=== PATIENT | male | born 1960 | race Caucasian/White ===

== ENCOUNTER 2021-08-01 16:47 | Observation (INO) | payer MEDICAID ==
[2021-08-01] MEDS ORDERED: Ondansetron 4 MG/2 ML SDV IVPUSH ONE (17:49)
[2021-08-01] MEDS ORDERED: Pantoprazole 40 MG Vial IVPUSH ONE (17:49)
--- NOTE | 2021-08-01 17:51 | EDM.PDOC ---
ED HPI GENERAL MEDICAL PROBLEM - General Chief Complaint: Gastrointestinal Problem Time Seen by Provider: 08/01/21 17:30 Source of Information: Reports: Patient, Old Records - History of Present Illness INITIAL COMMENTS - FREE TEXT/NARRATIVE: Aimee is a 61 y/o male who was seen this afternoon at the [facility] for bloody stools. He did have labs done and results were sent here to the ER; patient was then sent here to be further evaluated. Pt reports that last evening he had some abdominal pain and felt ill then started to have the diarrhea. Then shortly after that the diarrhea turned to bright bloody stools and continued most of the night about every 30-60 minutes. He is a but light- headed and nauseated and feels weak. He is usually seen by Dr Rome in [place], but could not get in and came here today. He reports having a colonoscopy in 2019 at [facility] and he had a polyp removed. Does have a positive family hx of colon CA. Abdomen Pain Score (Numeric/FACES): 7 - Related Data Allergies Allergy/AdvReac Type Severity Reaction Status Date / Time barium sulfate Allergy Other Verified 08/01/21 17:09 lactose Allergy Abdominal Verified 08/01/21 17:09 Cramps Home Meds: Home Meds FLUoxetine HCl [Prozac] 60 mg PO DAILY 08/01/21 [History] Folic Acid 0.8 mg PO DAILY 08/01/21 [History] Ketoconazole [Ketoconazole 2%] 1 applic TOP TID 08/01/21 [History] Methylphenidate HCl [Methylphenidate ER] 20 mg PO DAILY 08/01/21 [History] Metoprolol Succinate [Toprol XL 100mg] 100 mg PO DAILY 08/01/21 [History] Omeprazole Magnesium [Prilosec Otc] 20 mg PO DAILY 08/01/21 [History] Tamsulosin HCl [Flomax] 0.4 mg PO DAILY 08/01/21 [History] atorvaSTATin Calcium [Lipitor] 20 mg PO BEDTIME 08/01/21 [History] buPROPion HCL [Bupropion Xl] 300 mg PO DAILY 08/01/21 [History] polyethylene glycoL 3350 [MiraLAX] 17 gm PO DAILY 08/01/21 [History] Past Medical History Cardiovascular History: Reports: Hypertension Psychiatric History: Reports: Depression Social & Family History - Tobacco Use Tobacco Use Status *Q: Unknown Ever Used Tobacco Review of Systems - Review of Systems Review Of Systems: See Below Constitutional: Reports: Weakness Eyes: Reports: No Symptoms Ears: Reports: Dizziness Nose: Reports: No Symptoms Mouth/Throat: Reports: No Symptoms Respiratory: Reports: No Symptoms Cardiovascular: Reports: No Symptoms GI/Abdominal: Reports: Abdominal Pain, Bloody Stool, Diarrhea, Nausea Genitourinary: Reports: No Symptoms Musculoskeletal: Reports: No Symptoms Skin: Reports: No Symptoms Neurological: Reports: Dizziness Psychiatric: Reports: No Symptoms ED EXAM, GENERAL - Physical Exam Exam: See Below General Appearance: Alert, WD/WN, No Apparent Distress (Adult male, NAD. Neatly dressed and sitting quietly in ER chair.) Ears: Hearing Grossly Normal Nose: Normal Inspection, Normal Mucosa Throat/Mouth: Normal Inspection, Normal Oropharynx, Normal Voice Head: Atraumatic, Normocephalic Respiratory/Chest: No Respiratory Distress, Lungs Clear Cardiovascular: Normal Peripheral Pulses, Regular Rate, Rhythm, No Murmur GI/Abdominal: Soft, No Distention, Tender (LUQ/LLQ), Abnormal Bowel Sounds ( Hyperactive x 4 quads) (Male) Exam: Deferred Rectal (Males) Exam: Deferred Back Exam: No: CVA Tenderness (L), CVA Tenderness (R) Extremities: Normal Inspection, Normal Range of Motion, Normal Capillary Refill Neurological: Alert, Oriented, CN II-XII Intact, Normal Cognition, No Motor/Sensory Deficits Psychiatric: Normal Affect Skin Exam: Warm, Dry, Intact, Pallor (Slightly pale) Course - Vital Signs Text/Narrative:: 1729 The patient was seen by the [facility]. Labs from [facility] were reviewed. CBC wnl, CMP AST/ALT mildly elevated otherwise wnl. Patient had small bright bloody stool in the ER. VSS. IV fluids started. Protonix 80mg IVP and Zofran 4mg IVP ordered. 1744 [facility] contacted, no beds available. Will obtain CT Abd/pelvis to exclude other differentials and if negative and pt remains stable will plan Observation admission and attempt to get him to GI tomorrow. 1944 CT results reviewed, note colitis in the transverse colon. Pt had been up and had several more bright bloody stools with small clots. Will admit Observation and place him on fluids, monitor his bloody stools overnight and then consult GI in the AM and possible transfer to [place] then if he stays stable tonight. Azithromycin to cover him for the colitis. Last Recorded V/S: Last Vital Signs Temp 35.9 C L 08/01/21 16:55 Pulse 68 08/01/21 16:55 Resp 18 08/01/21 16:55 BP 108/77 08/01/21 16:55 Pulse Ox 96 08/01/21 16:55 - Orders/Labs/Meds Orders: Active Orders 24 hr Category Date Time Status Azithromycin [Zithromax] 500 mg Med 08/01/21 19:51 Ordered Sodium Chloride 0.9% [Normal Saline AdvBag] 250 ml IV STAT Sodium Chloride 0.9% [Normal Saline] 1,000 ml Med 08/01/21 19:03 Active IV ONETIME Sodium Chloride 0.9% [Saline Flush] Med 08/01/21 17:47 Active 10 ml FLUSH ASDIRECTED PRN Saline Lock Insert [OM.PC] Stat Oth 08/01/21 17:47 Ordered Medication Orders Sodium Chloride (Normal Saline) 1,000 mls @ 999 mls/hr IV ONETIME ONE Stop: 08/01/21 20:03 Last Admin: 08/01/21 19:20 Dose: 999 mls/hr Documented by: SEVERIANO Azithromycin 500 mg/ Sodium (Chloride) 250 mls @ 250 mls/hr IV STAT ONE Stop: 08/01/21 20:50 Sodium Chloride (Sodium Chloride 0.9% 10 Ml Syringe) 10 ml FLUSH ASDIRECTED PRN PRN Reason: Keep Vein Open Labs: Laboratory Tests 08/01/21 Range/Units 18:46 SARS CoV-2 RNA Rapid CHAD Negative (NEGATIVE) Meds: Medications Generic Name Dose Route Start Last Admin Trade Name Freq PRN Reason Stop Dose Admin Sodium Chloride 1,000 mls @ 999 mls/hr 08/01/21 19:03 08/01/21 19:20 Normal Saline IV 08/01/21 20:03 999 mls/hr ONETIME ONE Administration Azithromycin 500 mg/ Sodium 250 mls @ 250 mls/hr 08/01/21 19:51 Chloride IV 08/01/21 20:50 STAT ONE Sodium Chloride 10 ml 08/01/21 17:47 Sodium Chloride 0.9% 10 Ml Syringe FLUSH ASDIRECTED PRN Keep Vein Open Discontinued Medications Generic Name Dose Route Start Last Admin Trade Name Yumiko PRN Reason Stop Dose Admin Iopamidol 100 ml 08/01/21 18:50 Iopamidol 612 Mg/Ml 100 Ml Bottle IVPUSH 08/01/21 18:51 ONETIME ONE Ondansetron HCl 4 mg 08/01/21 17:49 08/01/21 18:08 Ondansetron 4 Mg/2 Ml Sdv IVPUSH 08/01/21 17:50 4 mg ONETIME ONE Administration Pantoprazole Sodium 80 mg 08/01/21 17:49 08/01/21 18:13 Pantoprazole 40 Mg Vial IVPUSH 08/01/21 17:50 80 mg ONETIME ONE Administration - Radiology Interpretation Free Text/Narrative:: CT Abd/Pelvis W= colitis in the distal trasnverse colon, possible scattered enteritis (See final report) Departure - Departure Time of Disposition: 19:56 Disposition: Refer to Observation Condition: Good Clinical Impression: Bloody stools - Discharge Information Referrals: Bj Alaniz MD [Primary Care Provider] - Forms: ED Department Discharge Additional Instructions: -Admit to Observation tonight and attempt to consult [facility] tomorrow and transfer for GI consult. Sepsis Event Note (ED) - Focused Exam Vital Signs: Vital Signs Temp Pulse Resp BP Pulse Ox 08/01/21 16:55 35.9 C L 68 18 108/77 96 - Problem List & Annotations (1) Bloody stools SNOMED Code(s): 995714122 Code(s): K92.1 - MELENA Status: Acute Current Visit: Yes Annotation/Comment:: CT noted colitis and possible enteritis. Will start Azithromycin tonight and admit him to Observation with IV fluids. WIll make him NPO with ice chips only. Continue antiemtics and monitor his vitals. Call [facility] again in the AM for a bed. - Problem List Review Problem List Initiated/Reviewed/Updated: Yes - My Orders Last 24 Hours: My Active Orders 08/01/21 17:47 Sodium Chloride 0.9% [Saline Flush] 10 ml FLUSH ASDIRECTED PRN Saline Lock Insert [OM.PC] Stat 08/01/21 19:03 Sodium Chloride 0.9% [Normal Saline] 1,000 ml IV ONETIME 08/01/21 19:51 Azithromycin [Zithromax] 500 mg Sodium Chloride 0.9% [Normal Saline AdvBag] 250 ml IV STAT - Assessment/Plan Admission H&P: Please use this note as an admission H&P Last 24 Hours: My Active Orders 08/01/21 17:47 Sodium Chloride 0.9% [Saline Flush] 10 ml FLUSH ASDIRECTED PRN Saline Lock Insert [OM.PC] Stat 08/01/21 19:03 Sodium Chloride 0.9% [Normal Saline] 1,000 ml IV ONETIME 08/01/21 19:51 Azithromycin [Zithromax] 500 mg Sodium Chloride 0.9% [Normal Saline AdvBag] 250 ml IV STAT Plan: See above
[2021-08-01] MEDS ORDERED: Iopamidol 612 MG/ML 100 ML Bottle IVPUSH ONE (18:50)
[2021-08-01] MEDS ORDERED: Sodium Chloride 0.9% 1,000 ML IV ONE (19:03)
--- NOTE | 2021-08-01 19:28 | CT ---
[id number] CT/CT Abdomen Pelvis W IV EXAM: CT Abdomen Pelvis W IV INDICATION: ABDOMINAL PAIN, BLOODY STOOLS. COMPARISON: None. DISCUSSION: There is moderate mural thickening involving the distal transverse colon compatible with colitis. Borderline mural thickening involving loops of the distal small bowel which could relate to enteritis. No free air, pneumatosis, bowel dilation, free air, or abscess. Bladder wall thickening is nonspecific, but may relate to chronic outlet obstruction. Mild to moderate prostate enlargement. Evidence of prior left inguinal hernia repair. The liver, gallbladder, spleen, pancreas, adrenal glands, kidneys, and appendix are normal in appearance. No adenopathy. Slight retrolisthesis of L4-L5. Slight spondylolisthesis L5-S1 with bilateral pars defects. IMPRESSION: 1. Colitis of the distal transverse segment. 2. Possible mild scattered enteritis. Tom Mistry MD 08/01/[id number] Thank you for allowing us to participate in the care of your patient.
[2021-08-01] MEDS ORDERED: Azithromycin 500 MG in Sodium Chloride 0.9% 250 ML IV ONE (19:51)
[2021-08-01] MEDS ORDERED: Temazepam 15 MG Cap PO PRN (20:01)
[2021-08-01] MEDS ORDERED: Acetaminophen 325 MG Tab PO PRN (20:01)
[2021-08-01] MEDS ORDERED: Ondansetron 4 MG/2 ML SDV IV PRN (20:01)
[2021-08-01] MEDS ORDERED: Pantoprazole 40 MG in Sodium Chloride 0.9% 100 ML IV SCH (20:15)
[2021-08-01] MEDS ORDERED: Morphine 2 MG/ML SYRINGE IVPUSH PRN (21:18)
[2021-08-01] MEDS: Dextrose 5%-0.9% NaCl 1,000 ML IV SCH (21:39)
[2021-08-02] MEDS: Morphine 2 MG/ML SYRINGE IVPUSH PRN ×2 (02:13→08:23)
[2021-08-02] MEDS: Dextrose 5%-0.9% NaCl 1,000 ML IV SCH ×2 (06:00→13:01)
[2021-08-02 07:11] LABS: ANION GAP 11.7 mmol/L (5-15); CHLORIDE,CL 108 mmol/L (98-107); SODIUM,NA 145 mmol/L (136-145)
[2021-08-02] MEDS ORDERED: buPROPion 150 MG Tab.ER PO SCH (08:00)
[2021-08-02] MEDS ORDERED: Tamsulosin 0.4 MG Cap.ER PO SCH (08:00)
[2021-08-02] MEDS ORDERED: Non-Formulary Medication 1 Each (Metoprolol Succinate [Toprol Xl 100mg] 100 MG Tab.Er) PO SCH (08:00)
[2021-08-02] MEDS ORDERED: Non-Formulary Medication 1 Each (Bupropion Hcl [Bupropion Xl] 300 MG Tab.Er.24h) PO SCH (08:00)
[2021-08-02] MEDS ORDERED: Metoprolol Succinate 50 MG Tab.ER PO SCH (08:00)
[2021-08-02] MEDS ORDERED: Pantoprazole 40 MG Vial IVPUSH SCH (08:00)
[2021-08-02] MEDS ORDERED: Azithromycin 500 MG in Sodium Chloride 0.9% 250 ML IV SCH ×2 (08:00→20:00)
[2021-08-02] MEDS ORDERED: FLUoxetine 20 MG Cap PO SCH (08:00)
[2021-08-02] MEDS ORDERED: METHYLPHENIDATE HCL 20 MG PO SCH (08:00)
[2021-08-02] MEDS: Sodium Chloride 0.9% 10 ML Syringe FLUSH PRN ×2 (08:24→09:24)
--- NOTE | 2021-08-02 09:05 | PCM.PN ---
- General Info Date of Service: 08/02/21 Admission Dx/Problem (Free Text): Bloody Stools Possible Colitis Subjective Update: Doing well overnight. Has still been up with bloody stools, but frequency seems a less overnight. Patient is still having abdominal discomfort and nausea. Feeling weak. - Review of Systems General: Reports: Weakness HEENT: Reports: No Symptoms Pulmonary: Reports: No Symptoms Cardiovascular: Reports: No Symptoms Gastrointestinal: Reports: Abdominal Pain, Nausea, Other (Bloody Stools) Genitourinary: Reports: No Symptoms Musculoskeletal: Reports: No Symptoms, Back Pain Neurological: Reports: Dizziness Psychiatric: Reports: No Symptoms - Patient Data Vitals - Most Recent: Last Vital Signs Temp 35.9 C L 08/02/21 06:05 Pulse 68 08/02/21 08:21 Resp 18 08/02/21 06:05 BP 141/78 H 08/02/21 08:21 Pulse Ox 96 08/02/21 06:05 Weight - Most Recent: 80.739 kg I&O - Last 24 Hours: Intake & Output 08/01/21 08/02/21 08/02/21 22:59 06:59 14:59 Intake Total 1250 Output Total 250 850 Balance -250 400 Lab Results Last 24 Hours: Laboratory Results - last 24 hr 08/01/21 08/02/21 08/02/21 Range/Units 18:46 06:22 06:22 WBC 6.0 (4.0-10.0) x10^3/uL RBC 4.61 (4.5-6.0) x10^6/uL Hgb 13.8 L (14.0-18.0) g/dL Hct 40.6 (40.0-52.0) % MCV 88.1 (78.0-93.0) fL MCH 29.9 (26.0-32.0) pg MCHC 34.0 (32.0-36.0) g/dL RDW Coeff of Ana 13.2 (10.0-15.0) % Plt Count 133 (130-400) x10^3/uL Immature Gran % (Auto) 0.20 (0.00-0.43) % Neut % (Auto) 70.9 (50.0-80.0) % Lymph % (Auto) 19.6 L (25.0-50.0) % Sawyer % (Auto) 8.8 (2.0-11.0) % Eos % (Auto) 0.3 (0.0-4.0) % Baso % (Auto) 0.2 (0.2-1.2) % Neut # (Auto) 4.3 (1.8-7.7) x10^3/uL Lymph # (Auto) 1.2 (1.0-4.8) x10^3/uL Sawyer # (Auto) 0.5 (0.0-0.8) x10^3/uL Eos # (Auto) 0.0 (0.0-0.5) x10^3/uL Baso # (Auto) 0.0 (0.0-0.2) x10^3/uL Immature Gran # (Auto) 0.01 (0.00-0.07) x10^3/uL Sodium 145 (136-145) mmol/L Potassium 3.7 (3.5-5.1) mmol/L Chloride 108 H (98-107) mmol/L Carbon Dioxide 29 (21-32) mmol/L Anion Gap 11.7 (5-15) mmol/L BUN 8 (7-18) mg/dL Creatinine 1.0 (0.70-1.30) mg/dL Est Cr Clr Drug Dosing 82.13 mL/min Estimated GFR (MDRD) > 60 Glucose 107 H (70-99) mg/dL Calcium 8.1 L (8.5-10.1) mg/dL C-Reactive Protein 1.9 H (<=0.9) mg/dL SARS CoV-2 RNA Rapid CHAD Negative (NEGATIVE) Med Orders - Current: Current Medications Acetaminophen (Acetaminophen 325 Mg Tab) 650 mg PO Q4H PRN PRN Reason: Pain (Mild 1-3)/fever Bupropion HCl (Bupropion 150 Mg Tab.Er) 300 mg PO DAILY [facility] Last Admin: 08/02/21 08:23 Dose: 300 mg Documented by: Ceftriaxone Sodium (Ceftriaxone 1 Gm Vial) 1 gm IVPUSH DAILY GUY Fluoxetine HCl (Fluoxetine 20 Mg Cap) 60 mg PO DAILY [facility] Last Admin: 08/02/21 08:22 Dose: 60 mg Documented by: Dextrose/Sodium Chloride (Dextrose 5%-Normal Saline) 1,000 mls @ 125 mls/hr IV ASDIRECTED [facility] Last Admin: 08/02/21 06:00 Dose: 125 mls/hr Documented by: Metronidazole 500 mg/ Premix 100 mls @ 100 mls/hr IV Q8H [facility] Metoprolol Succinate (Metoprolol Succinate 50 Mg Tab.Er) 100 mg PO DAILY [facility] Last Admin: 08/02/21 08:21 Dose: 100 mg Documented by: Morphine Sulfate (Morphine 2 Mg/Ml Syringe) 2 mg IVPUSH Q2H PRN PRN Reason: Pain Last Admin: 08/02/21 08:23 Dose: 2 mg Documented by: Morphine Sulfate (Morphine 2 Mg/Ml Syringe) 1 mg IVPUSH Q2H PRN PRN Reason: Pain Non-Formulary Medication (Methylphenidate Hcl [Methylphenidate Er]) 20 mg PO DAILY [facility] Last Admin: 08/02/21 08:29 Dose: Not Given Documented by: Ondansetron HCl (Ondansetron 4 Mg/2 Ml Sdv) 4 mg IV Q4H PRN PRN Reason: Nausea/Vomiting Last Admin: 08/02/21 08:21 Dose: 4 mg Documented by: Pantoprazole Sodium (Pantoprazole 40 Mg Vial) 40 mg IVPUSH Q12H [facility] Last Admin: 08/02/21 08:21 Dose: 40 mg Documented by: Sodium Chloride (Sodium Chloride 0.9% 10 Ml Syringe) 10 ml FLUSH ASDIRECTED PRN PRN Reason: Keep Vein Open Last Admin: 08/02/21 08:24 Dose: 10 ml Documented by: Tamsulosin HCl (Tamsulosin 0.4 Mg Cap.Er) 0.4 mg PO DAILY [facility] Last Admin: 08/02/21 08:22 Dose: 0.4 mg Documented by: Temazepam (Temazepam 15 Mg Cap) 15 mg PO BEDTIME PRN PRN Reason: Sleep Discontinued Medications Sodium Chloride (Normal Saline) 1,000 mls @ 999 mls/hr IV ONETIME ONE Stop: 08/01/21 20:03 Last Admin: 08/01/21 19:20 Dose: 999 mls/hr Documented by: Azithromycin 500 mg/ Sodium (Chloride) 250 mls @ 250 mls/hr IV STAT ONE Stop: 08/01/21 20:50 Last Admin: 08/01/21 20:05 Dose: 250 mls/hr Documented by: Azithromycin 500 mg/ Sodium (Chloride) 250 mls @ 250 mls/hr IV DAILY GUY Pantoprazole Sodium 40 mg/ (Sodium Chloride) 100 mls @ 20 mls/hr IV Q12H GUY Last Admin: 08/02/21 02:14 Dose: Not Given Documented by: Azithromycin 500 mg/ Sodium (Chloride) 250 mls @ 250 mls/hr IV Q24H GUY Iopamidol (Iopamidol 612 Mg/Ml 100 Ml Bottle) 100 ml IVPUSH ONETIME ONE Stop: 08/01/21 18:51 Last Admin: 08/01/21 18:13 Dose: 100 ml Documented by: Non-Formulary Medication (Bupropion Hcl [Bupropion Xl]) 300 mg PO DAILY GUY Non-Formulary Medication (Metoprolol Succinate [Toprol Xl 100mg]) 100 mg PO DAILY GUY Ondansetron HCl (Ondansetron 4 Mg/2 Ml Sdv) 4 mg IVPUSH ONETIME ONE Stop: 08/01/21 17:50 Last Admin: 08/01/21 18:08 Dose: 4 mg Documented by: Pantoprazole Sodium (Pantoprazole 40 Mg Vial) 80 mg IVPUSH ONETIME ONE Stop: 08/01/21 17:50 Last Admin: 08/01/21 18:13 Dose: 80 mg Documented by: - Exam General: Alert, Oriented, No Acute Distress (Adult male, resting quietly.) HEENT: Mucous Membr. Moist/[place] Neck: Supple Lungs: Clear to Auscultation, Normal Respiratory Effort Cardiovascular: Regular Rate, Regular Rhythm GI/Abdominal Exam: No Distention, Abnormal Bowel Sounds (decreased) (Male) Exam: Deferred Extremities: Normal Inspection, Normal Range of Motion, No Pedal Edema, Normal Capillary Refill Skin: Warm, Dry, Intact Psy/Mental Status: Alert, Normal Affect, Normal Mood - Patient Data Lab Results Last 24 hrs: Laboratory Results - last 24 hr 08/01/21 08/02/21 08/02/21 Range/Units 18:46 06:22 06:22 WBC 6.0 (4.0-10.0) x10^3/uL RBC 4.61 (4.5-6.0) x10^6/uL Hgb 13.8 L (14.0-18.0) g/dL Hct 40.6 (40.0-52.0) % MCV 88.1 (78.0-93.0) fL MCH 29.9 (26.0-32.0) pg MCHC 34.0 (32.0-36.0) g/dL RDW Coeff of Ana 13.2 (10.0-15.0) % Plt Count 133 (130-400) x10^3/uL Immature Gran % (Auto) 0.20 (0.00-0.43) % Neut % (Auto) 70.9 (50.0-80.0) % Lymph % (Auto) 19.6 L (25.0-50.0) % Sawyer % (Auto) 8.8 (2.0-11.0) % Eos % (Auto) 0.3 (0.0-4.0) % Baso % (Auto) 0.2 (0.2-1.2) % Neut # (Auto) 4.3 (1.8-7.7) x10^3/uL Lymph # (Auto) 1.2 (1.0-4.8) x10^3/uL Sawyer # (Auto) 0.5 (0.0-0.8) x10^3/uL Eos # (Auto) 0.0 (0.0-0.5) x10^3/uL Baso # (Auto) 0.0 (0.0-0.2) x10^3/uL Immature Gran # (Auto) 0.01 (0.00-0.07) x10^3/uL Sodium 145 (136-145) mmol/L Potassium 3.7 (3.5-5.1) mmol/L Chloride 108 H (98-107) mmol/L Carbon Dioxide 29 (21-32) mmol/L Anion Gap 11.7 (5-15) mmol/L BUN 8 (7-18) mg/dL Creatinine 1.0 (0.70-1.30) mg/dL Est Cr Clr Drug Dosing 82.13 mL/min Estimated GFR (MDRD) > 60 Glucose 107 H (70-99) mg/dL Calcium 8.1 L (8.5-10.1) mg/dL C-Reactive Protein 1.9 H (<=0.9) mg/dL SARS CoV-2 RNA Rapid CHAD Negative (NEGATIVE) Result Diagrams: 08/02/21 06:22 08/02/21 06:22 Sepsis Event Note - Evaluation Sepsis Screening Result: No Definite Risk - Focused Exam Vital Signs: Vital Signs Temp Pulse Pulse Resp BP BP Pulse Ox 08/02/21 08:21 68 141/78 H 08/02/21 06:05 35.9 C L 68 18 141/78 H 96 08/02/21 02:00 35.4 C L 70 19 133/72 95 08/01/21 22:02 08/01/21 21:44 36.7 C 68 22 H 120/80 97 Pulse Ox 08/02/21 08:21 08/02/21 06:05 08/02/21 02:00 08/01/21 22:02 94 L 08/01/21 21:44 - Problem List & Annotations (1) Bloody stools SNOMED Code(s): 575833923 Code(s): K92.1 - MELENA Status: Acute Current Visit: Yes Annotation/Comment:: [facility] contacted and case discussed with Dr Patel, patient accepted for transfer when bed available. D/C Azithromycin and Ceftriaxone and Flagyl ordered this AM. Continue NPO status. - Problem List Review Problem List Initiated/Reviewed/Updated: Yes - My Orders Last 24 Hours: My Active Orders 08/01/21 17:47 Sodium Chloride 0.9% [Saline Flush] 10 ml FLUSH ASDIRECTED PRN Saline Lock Insert [OM.PC] Stat 08/01/21 19:59 Patient Status [ADT] Routine May Shower [RC] 08 Up ad Elaine [RC] , VTE/DVT Education [RC] 08 Resuscitation Status Routine 08/01/21 20:00 Intake and Output [RC] 06,18 08/01/21 20:01 Cardiac Monitoring [RC] 02,06,10,14,18,22 Notify Provider Vital Signs [RC] .PRN Acetaminophen [TylenoL] 650 mg PO Q4H PRN Ondansetron [Zofran] 4 mg IV Q4H PRN Temazepam [Restoril] 15 mg PO BEDTIME PRN 08/01/21 20:02 Ambulate [RC] 08,20 Oxygen Therapy [RC] PRN Vital Signs [RC] 02,06,10,14,18,22 08/01/21 21:17 Morphine 2 mg IVPUSH Q2H PRN 08/01/21 21:18 Morphine 1 mg IVPUSH Q2H PRN 08/01/21 21:30 Dextrose 5%-0.9% NaCl [Dextrose 5%-Normal Saline] 1,000 ml IV ASDIRECTED 08/02/21 08:00 FLUoxetine [PROzac] 60 mg PO DAILY Methylphenidate HCl [Methylphenidate ER] 20 mg PO DAILY Metoprolol Succinate [Toprol XL] 100 mg PO DAILY Pantoprazole [ProTONIX IV] 40 mg IVPUSH Q12H Tamsulosin [Flomax] 0.4 mg PO DAILY buPROPion [Wellbutrin XL] 300 mg PO DAILY 08/02/21 09:02 Dietary Supplements [RC] BIDMEALS 08/02/21 09:15 cefTRIAXone [Rocephin] 1 gm IVPUSH DAILY metroNIDAZOLE/Normal Saline [Flagyl in NS 500 MG/100 ML] 500 mg Premix Bag 1 bag IV Q8H - Plan Plan:: -Transfer to [facility] to Dr Patel when bed available. Plan transfer by ambulance.
[2021-08-02] MEDS ORDERED: cefTRIAXone 1 GM Vial IVPUSH SCH (09:15)
[2021-08-02] MEDS: metroNIDAZOLE/Normal Saline 500 MG in Premix Bag 1 BAG IV SCH ×3 (09:24→16:27)
--- NOTE | 2021-08-02 13:08 | PCM.DCSUM1 ---
Discharge Summary - Hospital Course HPI Initial Comments: Patient had presented to the ER last night with report of bloody stools that had started Sunday night following an episode of diarhea and overall not feeling well. This persisted and then he was seen in the ER on Sunday evening. He indeed was continuing to have bright bloody stools and [place] Was consulted, but no bed available. So he was started on abx and a CT was done here in [place] last night. Possible colitis or enteritis noted. He was kept NPO and admitted here for Observation until a bed was available in [place]. Bloody stools have persisted through the night. Vitals stable. Remains NPO. Still having some nausea and abdominal discomfort. Diagnosis: Stroke: No - Discharge Data Discharge Date: 08/02/21 Discharge Disposition: DC/Tfer to Acute Hospital 02 Condition: Good - Referral to Home Health Primary Care Physician: Bj Alaniz MD - Discharge Diagnosis/Problem(s) (1) Bloody stools SNOMED Code(s): 629073481 ICD Code: K92.1 - MELENA Status: Acute Current Visit: Yes Problem Details: [facility] contacted and case discussed with Dr Patel, patient accepted for transfer when bed available. D/C Azithromycin and Ceftriaxone and Flagyl ordered this AM. Continue NPO status. - Patient Instructions Diet: NPO - Discharge Plan Home Medications: Home Meds FLUoxetine HCl [Prozac] 60 mg PO DAILY 08/01/21 [History] Folic Acid 0.8 mg PO DAILY 08/01/21 [History] Ketoconazole [Ketoconazole 2%] 1 applic TOP TID 08/01/21 [History] Methylphenidate HCl [Methylphenidate ER] 20 mg PO DAILY 08/01/21 [History] Metoprolol Succinate [Toprol XL 100mg] 100 mg PO DAILY 08/01/21 [History] Omeprazole Magnesium [Prilosec Otc] 20 mg PO DAILY 08/01/21 [History] Tamsulosin HCl [Flomax] 0.4 mg PO DAILY 08/01/21 [History] atorvaSTATin Calcium [Lipitor] 20 mg PO BEDTIME 08/01/21 [History] buPROPion HCL [Bupropion Xl] 300 mg PO DAILY 08/01/21 [History] polyethylene glycoL 3350 [MiraLAX] 17 gm PO DAILY 08/01/21 [History] Oxygen Therapy Mode: Room Air Forms: Interfacility Transfer EMTALA Referrals: Bj Alaniz MD [Primary Care Provider] - - Discharge Summary/Plan Comment DC Time >30 min.: Yes Total # of Minutes for Discharge Time: 45 minutes for patient care, documentation, and arranging transfer to Special[facility] - Patient Data Vitals - Most Recent: Last Vital Signs Temp 36.4 C 08/02/21 10:00 Pulse 72 08/02/21 10:00 Resp 18 08/02/21 10:00 BP 139/68 08/02/21 10:00 Pulse Ox 96 08/02/21 10:00 Weight - Most Recent: 80.739 kg I&O - Last 24 hours: Intake & Output 08/01/21 08/02/21 08/02/21 22:59 06:59 14:59 Intake Total 1250 Output Total 250 850 Balance -250 400 Lab Results - Last 24 hrs: Laboratory Results - last 24 hr 08/01/21 08/02/21 08/02/21 Range/Units 18:46 06:22 06:22 WBC 6.0 (4.0-10.0) x10^3/uL RBC 4.61 (4.5-6.0) x10^6/uL Hgb 13.8 L (14.0-18.0) g/dL Hct 40.6 (40.0-52.0) % MCV 88.1 (78.0-93.0) fL MCH 29.9 (26.0-32.0) pg MCHC 34.0 (32.0-36.0) g/dL RDW Coeff of Ana 13.2 (10.0-15.0) % Plt Count 133 (130-400) x10^3/uL Immature Gran % (Auto) 0.20 (0.00-0.43) % Neut % (Auto) 70.9 (50.0-80.0) % Lymph % (Auto) 19.6 L (25.0-50.0) % [place] % (Auto) 8.8 (2.0-11.0) % Eos % (Auto) 0.3 (0.0-4.0) % Baso % (Auto) 0.2 (0.2-1.2) % Neut # (Auto) 4.3 (1.8-7.7) x10^3/uL Lymph # (Auto) 1.2 (1.0-4.8) x10^3/uL [place] # (Auto) 0.5 (0.0-0.8) x10^3/uL Eos # (Auto) 0.0 (0.0-0.5) x10^3/uL Baso # (Auto) 0.0 (0.0-0.2) x10^3/uL Immature Gran # (Auto) 0.01 (0.00-0.07) x10^3/uL Sodium 145 (136-145) mmol/L Potassium 3.7 (3.5-5.1) mmol/L Chloride 108 H (98-107) mmol/L Carbon Dioxide 29 (21-32) mmol/L Anion Gap 11.7 (5-15) mmol/L BUN 8 (7-18) mg/dL Creatinine 1.0 (0.70-1.30) mg/dL Est Cr Clr Drug Dosing 82.13 mL/min Estimated GFR (MDRD) > 60 Glucose 107 H (70-99) mg/dL Calcium 8.1 L (8.5-10.1) mg/dL C-Reactive Protein 1.9 H (<=0.9) mg/dL SARS CoV-2 RNA Rapid CHAD Negative (NEGATIVE) Med Orders - Current: Current Medications Acetaminophen (Acetaminophen 325 Mg Tab) 650 mg PO Q4H PRN PRN Reason: Pain (Mild 1-3)/fever Bupropion HCl (Bupropion 150 Mg Tab.Er) 300 mg PO DAILY [facility] Last Admin: 08/02/21 08:23 Dose: 300 mg Documented by: Ceftriaxone Sodium (Ceftriaxone 1 Gm Vial) 1 gm IVPUSH DAILY [facility] Last Admin: 08/02/21 09:24 Dose: 1 gm Documented by: Fluoxetine HCl (Fluoxetine 20 Mg Cap) 60 mg PO DAILY [facility] Last Admin: 08/02/21 08:22 Dose: 60 mg Documented by: Dextrose/Sodium Chloride (Dextrose 5%-Normal Saline) 1,000 mls @ 125 mls/hr IV ASDIRECTED [facility] Last Admin: 08/02/21 13:01 Dose: 125 mls/hr Documented by: Metronidazole 500 mg/ Premix 100 mls @ 100 mls/hr IV Q8H [facility] Last Admin: 08/02/21 09:24 Dose: 100 mls/hr Documented by: Metoprolol Succinate (Metoprolol Succinate 50 Mg Tab.Er) 100 mg PO DAILY [facility] Last Admin: 08/02/21 08:21 Dose: 100 mg Documented by: Morphine Sulfate (Morphine 2 Mg/Ml Syringe) 2 mg IVPUSH Q2H PRN PRN Reason: Pain Last Admin: 08/02/21 08:23 Dose: 2 mg Documented by: Morphine Sulfate (Morphine 2 Mg/Ml Syringe) 1 mg IVPUSH Q2H PRN PRN Reason: Pain Non-Formulary Medication (Methylphenidate Hcl [Methylphenidate Er]) 20 mg PO DAILY [facility] Last Admin: 08/02/21 08:29 Dose: Not Given Documented by: Ondansetron HCl (Ondansetron 4 Mg/2 Ml Sdv) 4 mg IV Q4H PRN PRN Reason: Nausea/Vomiting Last Admin: 08/02/21 08:21 Dose: 4 mg Documented by: Pantoprazole Sodium (Pantoprazole 40 Mg Vial) 40 mg IVPUSH Q12H [facility] Last Admin: 08/02/21 08:21 Dose: 40 mg Documented by: Sodium Chloride (Sodium Chloride 0.9% 10 Ml Syringe) 10 ml FLUSH ASDIRECTED PRN PRN Reason: Keep Vein Open Last Admin: 08/02/21 09:24 Dose: 10 ml Documented by: Tamsulosin HCl (Tamsulosin 0.4 Mg Cap.Er) 0.4 mg PO DAILY [facility] Last Admin: 08/02/21 08:22 Dose: 0.4 mg Documented by: Temazepam (Temazepam 15 Mg Cap) 15 mg PO BEDTIME PRN PRN Reason: Sleep Discontinued Medications Sodium Chloride (Normal Saline) 1,000 mls @ 999 mls/hr IV ONETIME ONE Stop: 08/01/21 20:03 Last Admin: 08/01/21 19:20 Dose: 999 mls/hr Documented by: Azithromycin 500 mg/ Sodium (Chloride) 250 mls @ 250 mls/hr IV STAT ONE Stop: 08/01/21 20:50 Last Admin: 08/01/21 20:05 Dose: 250 mls/hr Documented by: Azithromycin 500 mg/ Sodium (Chloride) 250 mls @ 250 mls/hr IV DAILY [facility] Pantoprazole Sodium 40 mg/ (Sodium Chloride) 100 mls @ 20 mls/hr IV Q12H [facility] Last Admin: 08/02/21 02:14 Dose: Not Given Documented by: Azithromycin 500 mg/ Sodium (Chloride) 250 mls @ 250 mls/hr IV Q24H [facility] Iopamidol (Iopamidol 612 Mg/Ml 100 Ml Bottle) 100 ml IVPUSH ONETIME ONE Stop: 08/01/21 18:51 Last Admin: 08/01/21 18:13 Dose: 100 ml Documented by: Non-Formulary Medication (Bupropion Hcl [Bupropion Xl]) 300 mg PO DAILY [facility] Non-Formulary Medication (Metoprolol Succinate [Toprol Xl 100mg]) 100 mg PO DAILY [facility] Ondansetron HCl (Ondansetron 4 Mg/2 Ml Sdv) 4 mg IVPUSH ONETIME ONE Stop: 08/01/21 17:50 Last Admin: 08/01/21 18:08 Dose: 4 mg Documented by: Pantoprazole Sodium (Pantoprazole 40 Mg Vial) 80 mg IVPUSH ONETIME ONE Stop: 08/01/21 17:50 Last Admin: 08/01/21 18:13 Dose: 80 mg Documented by:
== END 2021-08-02 16:35 | disposition short-term general hospital (02) ==
LOC: VM.ED 16:47 → VM.MS 19:59
PROVIDERS: ADMIT Nurse Practitioner Family; ATTEND Nurse Practitioner Family
DX: K92.1 Melena (principal); R19.7 Diarrhea, unspecified; I10 Essential (primary) hypertension; F32.A Depression, unspecified; Z80.0 Family history of malignant neoplasm of digestive organs; Z88.8 Allergy status to other drugs, medicaments and biological substances; Z79.899 Other long term (current) drug therapy; Z20.822 Contact with and (suspected) exposure to COVID-19
CPT/HCPCS: 36415; 74177; 80048; 85025; 86140; 96365; 96367; 96375; 96376; 99217; 99220; 99285-25; A9270-GY; C9113; G0378; J0456; J0696; J2270; J2405; J3490; J7030; J7042; J7050; Q9967; U0002